=== PATIENT | female | born 1955 | race Caucasian/White ===

== ENCOUNTER 2019-03-27 09:45 | Day surgery (SDC) | payer OTHER ==
[2019-03-23 09:27] VITALS: BMI 20.7
[2019-03-27 10:05] VITALS: TEMP 98.3
[2019-03-27] MEDS ORDERED: PROPOFOL 20 ML ONE ×2 (10:31)
[2019-03-27 11:31] VITALS: BP 110/60; PULSE 62
== END 2019-03-27 11:40 | disposition home or self-care (01) ==
LOC: FASU-ENDO 09:45
PROVIDERS: ATTEND Internal Medicine Gastroenterology
PROC: 0DJD8ZZ Inspection of Lower Intestinal Tract, Via Natural or Artificial Opening Endoscopic (ICD-10-PCS; principal; 2019-03-27 10:41)
DX: Z12.11 Encounter for screening for malignant neoplasm of colon (principal); Z80.0 Family history of malignant neoplasm of digestive organs